=== PATIENT | female | born 1955 | race Caucasian/White ===

== ENCOUNTER 2019-02-27 00:27 | Emergency (ER) | payer BC ==
[~2019-02-27] VITALS: Ht 157.5 cm; Wt 85.7 kg
[2019-02-27 00:30] VITALS: Ht 157.5 cm; Wt 85.7 kg
[2019-02-27 04:54] VITALS: BP 150/67
== END 2019-02-27 04:54 | disposition home or self-care (01) ==
LOC: ED 00:27
DX: T78.40XA Allergy, unspecified, initial encounter (principal); Z88.5 Allergy status to narcotic agent; Z88.8 Allergy status to other drugs, medicaments and biological substances; X58.XXXA Exposure to other specified factors, initial encounter
CPT/HCPCS: J1200; J2930; J3490; J7030